=== PATIENT | male | born 1995 | race African-American/Black ===

== ENCOUNTER 2016-09-26 13:43 | Emergency (ER) | payer SELFPAY ==
[~2016-09-26] VITALS: Ht 175.3 cm; Wt 90.7 kg
[2016-09-26 14:15] VITALS: BP 112/69
[2016-09-26] MEDS ORDERED: IOHEXOL 300 MG/ML 75 ML VIAL IV ONE (15:15)
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
[2016-09-26] MEDS ORDERED: CONTRAST GIVEN MC PRN (15:30)
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
[2016-09-26] MEDS ORDERED: CYCL10TA2 PO ×2 (16:32→18:02)
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
[2016-09-26] MEDS ORDERED: HYDR-971 PO (18:02)
== END 2016-09-26 18:11 | disposition home or self-care (01) ==
LOC: ER 15:10
DX: R07.89 Other chest pain (principal); M54.5 Low back pain; M54.6 Pain in thoracic spine; R10.9 Unspecified abdominal pain; F12.10 Cannabis abuse, uncomplicated; V49.88XA Car occupant (driver) (passenger) injured in other specified transport accidents, initial encounter; Y93.89 Activity, other specified; Y99.8 Other external cause status; Y92.488 Other paved roadways as the place of occurrence of the external cause
CPT/HCPCS: 71260; 74177; 99284; Q9967

== ENCOUNTER 2017-10-19 21:53 | Emergency (ER) | payer SELFPAY ==
[2017-10-19] MEDS: IBUPROFEN 800 MG TABLET. PO (22:20)
== END 2017-10-19 22:20 | disposition home or self-care (01) ==
LOC: ER 21:53
DX: K08.89 Other specified disorders of teeth and supporting structures (principal)
CPT/HCPCS: 99283

== ENCOUNTER 2018-08-21 10:02 | Emergency (ER) | payer SELFPAY ==
[~2018-08-21] VITALS: Ht 177.8 cm; Wt 104.3 kg
[2018-08-21 10:02] VITALS: BP 145/89
[~2018-08-21 10:02] MED LIST: AMOX500C PO; CYCL10TA2 PO; HYDR-3164 PO; IBUP-1060 PO
[2018-08-21] MEDS ORDERED: IBUPROFEN 200 MG TABLET. PO ONE (10:15)
[2018-08-21] MEDS ORDERED: LIDOCAINE 1% PF 30 ML VIAL. INJ ONE (10:15)
[2018-08-21] MEDS ORDERED: IBUPROFEN 400 MG TABLET. PO ONE (10:15)
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
[2018-08-21] MEDS ORDERED: LIDOCAINE 1% 20 ML VIAL. INJ ONE (10:30)
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
[2018-08-21] MEDS ORDERED: DIPHTH,PERTUSS(ACELL),TET TOX 0.5 ML DISP.SYRIN. VAX IM ONE (11:15)
[2018-08-21] MEDS ORDERED: NEOMY/BACITR/POLYMYXIN OINT PACKET. TP ONE (11:15)
== END 2018-08-21 11:37 | disposition home or self-care (01) ==
LOC: ER 10:02
DX: S61.210A Laceration without foreign body of right index finger without damage to nail, initial encounter (principal); S61.212A Laceration without foreign body of right middle finger without damage to nail, initial encounter; W25.XXXA Contact with sharp glass, initial encounter; Y93.89 Activity, other specified; Y92.89 Other specified places as the place of occurrence of the external cause; Y99.8 Other external cause status
CPT/HCPCS: 12002; 29130; 73130; 90471; 90715; 99284